=== PATIENT | female | born 1975 | race Caucasian/White ===

== ENCOUNTER 2016-05-07 09:40 | Emergency (ER) | payer MEDICAID ==
[~2016-05-07] VITALS: Ht 160 cm; Wt 85.0 kg
[~2016-05-07 09:40] MED LIST: [UNRECOGNIZED DRUG - REMARK]
[2016-05-07 09:55] VITALS: Ht 160 cm; Wt 85.0 kg
[2016-05-07] MEDS ORDERED: SOD CHLORIDE 0.9% 1,000 ML IV STA (10:05)
[2016-05-07] MEDS ORDERED: morphine 4 MG/ML VIAL IV STA (10:05)
[2016-05-07] MEDS ORDERED: ONDANSETRON 4 MG INJ IV STA (10:05)
[2016-05-07 10:44] LABS: BASOPHILS % 0.1 % (0.0-2.0); EOSINOPHILS % 0.2 % (0.0-7.0); HEMATOCRIT 40.1 % (37.0-47.0); HEMOGLOBIN 13.6 g/dl (12.0-16.0); LYMPHOCYTES % 7.7 % (15.0-51.0); MEAN CORPUSCULAR VOLUME 82.3 fl (82.0-101.0); MEAN PLATELET VOLUME 8.9 fl (7.4-10.4); MONOCYTE # 0.6 10^3/ul (0.3-0.9); MONOCYTES % 4.6 % (0.0-11.0); NEUTROPHIL # 11.5 10^3/ul (1.6-7.5); NEUTROPHILS % 87.4 % (39.0-77.0); PLATELET COUNT 204 10^3/UL (140-440); RED BLOOD COUNT 4.87 10^6/ul (4.20-5.40); RED CELL DISTRIBUTION WIDTH 14.6 % (11.5-14.5); UNCORRECTED WBC 13.1 10^3/ul (4.8-10.8); WHITE BLOOD COUNT 13.1 10^3/ul (4.8-10.8)
[2016-05-07 10:45] LABS: ADD UMIC YES; URINE BILIRUBIN (Dip) NEGATIVE (NEGATIVE); URINE BLOOD (Dip) 3+ (NEGATIVE); URINE COLOR LT. YELLOW (YELLOW); URINE GLUCOSE (Dip) NEGATIVE (NEGATIVE); URINE KETONES (Dip) NEGATIVE (NEGATIVE); URINE LEUKOCYTE ESTERASE (Dip) 1+ (NEGATIVE); URINE NITRITE (Dip) NEGATIVE (NEGATIVE); URINE TOTAL PROTEIN (Dip) NEGATIVE (NEGATIVE); URINE UROBILINOGEN (Dip) 0.2 E.U./dL (0.1-1.0)
[2016-05-07 10:47] LABS: CONDITION 1; LH ANALYZER COMMENTS 1
--- NOTE | 2016-05-07 10:51 | RADRPT ---
PROCEDURE: CT Abdomen and Pelvis without contrast. CLINICAL INDICATION: Abdominal pain. TECHNIQUE: Routine tomographic images of the abdomen and pelvis were obtained from the domes of th e diaphragm to the symphysis pubis. The patient was scanned withoutoral or intravenous contrast. C oronal and sagittal reformatted images were obtained from the axial source images. Images were revie wed on a high-resolution PACS workstation. The total exam CTDI equals 23.40 mGy and the total exam D LP equals 1433.01 mGy-cm. One or more of the following dose reduction techniques were used: Automa clovis exposure control, adjustment of the mA and / or kV according to patient size, or use of iterativ e reconstruction technique. COMPARISON: None. FINDINGS: The visualized portions of the lung bases are clear. Evaluation of the intra-abdominal solid org ans is limited on this noncontrast examination. The liver appears normal in size. There is no intr a or extrahepatic biliary dilatation. The gallbladder is surgically absent. The spleen, pancreas, and adrenal glands are unremarkable. The kidneys are symmetric in size. There is mild left hydronephrosis and proximal hydroureter. The re is a 3 mm calculus within the left mid ureter, approximately 6 cm distal to the UPJ, measuring 31 5 HU. There is an additional nonobstructing 2 mm calculus within the upper pole of the left kidney. No perinephric inflammatory changes are identified. The urinary bladder is grossly unremarkable. The bowel demonstrates normal course and caliber. There is no evidence of bowel obstruction. The appendix is normal in appearance. No intraperitoneal free fluid, free air or abscess is identified. The uterus and adnexa are unremarkable. The aorta is normal in caliber. No retroperitoneal, mesen teric, or inguinal lymphadenopathy is identified. The osseous structures are unremarkable. No significant subcutaneous soft tissue abnormalities are seen. IMPRESSION: 1. 3 mm obstructing calculus within the left mid ureter, approximately 6 cm distal to the UPJ at th e level of the superior endplate of the L4 vertebral body. There is mild left hydronephrosis and pro ximal hydroureter. 2. Additional, 2 mm nonobstructive calculus within the upper pole left kidney. 3. Status post cholecystectomy. RPTAT: HH .Rox Breaux MD, MD Date Time Electronically viewed and signed by .Rox Breaux MD, MD on 05/07/2016 10:51 .G/
[2016-05-07 10:52] LABS: ALBUMIN 4.3 g/dl (3.3-4.9)
[2016-05-07 10:55] LABS: ALBUMIN/GLOBULIN RATIO 1.19; BILIRUBIN,INDIRECT 0.1 mg/dl (0-1.1); BILIRUBIN,TOTAL 0.1 mg/dl (0.2-1.3); CALCIUM 9.3 mg/dl (8.4-10.2); CREATININE 0.59 mg/dl (0.44-1.00); TOTAL PROTEIN 7.9 g/dl (6.1-8.1)
[2016-05-07 11:17] LABS: BACTERIA,URINE FEW; SQUAMOUS EPITHELIAL CELL,UR MODERATE
--- NOTE | 2016-05-07 11:30 | RADRPT ---
PROCEDURE: US Pelvis CLINICAL INDICATION: left lower abdominal pain TECHNIQUE: Multiple sonographic images of the pelvis were obtained utilizing a transabdominal and endovaginal technique. The images were reviewed on a PACS workstation. COMPARISON: CT abdomen/pelvis from the same date LMP: 04/18/2016 FINDINGS: The uterus measures 9.4 x 5.3 cm. The endometrial echo complex measures 16 mm in thickness. Severa l sub-centimeter Nabothian cysts are identified. There is a 5.5 cm uterine fibroid. The right ovary is not visualized. The left ovary measures 2.8 x 2.2 x 6.6 cm. There is normal vascu lar flow in the left ovary. No significant ovarian lesions are seen. No significant pelvic free fluid is identified. IMPRESSION: 5.5 cm uterine fibroid. Prominence of the endometrium is likely related to stage of the menstrual cycle. The left ovary is unremarkable. Nonvisualization of the right ovary. RPTAT: EE Physician Patricia Date Time Electronically viewed and signed by Physician Patricia on 05/07/2016 11:30 /
[2016-05-07] MEDS ORDERED: KETOROLAC 30 MG INJ IV STA (12:06)
[2016-05-07] MEDS ORDERED: ALBUTEROL 0.5% (NEB) 2.5 MG/0.5 ML AMP NEB STA (13:32)
[2016-05-07] MEDS ORDERED: IPRATROPIUM (NEB) 0.5 MG/2.5 ML AMP NEB STA (13:32)
--- NOTE | 2016-05-07 13:57 | RADRPT ---
PROCEDURE: XR Chest. CLINICAL INDICATION: Shortness of breath. Cough. TECHNIQUE: Single frontal chest x-ray. COMPARISON: Abdomen pelvis CT of the same day. FINDINGS: The cardiomediastinal silhouette is unremarkable. There are bilateral low lung volumes with vascular crowding and mild bibasilar atelectasis. No pneum othorax, pleural effusion or consolidation is seen. No acute osseous abnormality is noted. Surgical clips projects over the right upper abdomen likely represent cholecystectomy. IMPRESSION: 1. Low lung volumes with vascular crowding and mild bibasilar atelectasis. 2. Prior cholecystectomy. RPTAT: QQ .Daniel Perez MD, MD Date Time Electronically viewed and signed by .Daniel Perez MD, on 05/07/2016 13:57 .N/
[2016-05-07] MEDS ORDERED: ALBU8.5H3 INH (15:06)
[2016-05-07] MEDS ORDERED: NAPR-260 PO (15:06)
[2016-05-07] MEDS ORDERED: TAMS-14 PO (15:06)
[2016-05-07] MEDS ORDERED: CIPR500T4 PO (15:06)
[2016-05-07] MEDS ORDERED: HYDR-906 PO (15:06)
[2016-05-07 15:16] VITALS: BP 128/69; PULSE 92; RESP 18; TEMP 98.1
--- NOTE | 2016-05-07 15:24 | ERD ---
ER Documentation Chief Complaint Date/Time DATE: 05/07/16 TIME: 15:16 Chief Complaint left upper and lower quadrant pain,vomiting HPI 41-year-old female with a past medical history of asthma, previous appendectomy presents to the ED complaining of a sudden onset of left lower quadrant pain that started last night. States that she is nauseous and has had one episode of nonbilious nonbloody vomiting. Denies any diarrhea. States that she had a normal bowel movement yesterday. States that sometimes the pain is also in her left upper quadrant and left flank region. Describes the pain as achy and rates it a 10 out of 10. Denies taking any medications. Denies any fever, chills, chest pain, shortness of breath. ROS All systems reviewed and are negative except as per history of present illness. Medications Home Meds Active Scripts Albuterol Sulfate* (Proair HFA*) 8.5 Gm Hfa.aer.ad, 2 PUFF INH Q4, #1 INHALER Prov:ALEN CONNELL PA-C 05/07/16 Hydrocodone/Acetaminophen (Aline 5-325 Tablet) 1 Each Tablet, 1 TAB PO Q6H Y for SEVERE PAIN LEVEL 7-10, #7 TAB Prov:ALEN CONNELL PA-C 05/07/16 Naproxen* (Naprosyn*) 500 Mg Tablet, 500 MG PO BID Y for PAIN AND/OR INFLAMMATION, #30 TAB Prov:ALEN CONNELL PA-C 05/07/16 Tamsulosin Hcl* (Flomax*) 0.4 Mg Cap.er.24h, 0.4 MG PO QPM, #30 CAP Prov:ALEN CONNELL PA-C 05/07/16 Ciprofloxacin Hcl* (Ciprofloxacin Hcl*) 500 Mg Tablet, 500 MG PO BID for 10 Days , TAB Prov:ALEN CONNELL PA-C 05/07/16 Reported Medications [No Meds Being Taken] No Conflict Check 12/24/10 Allergies Allergies: Coded Allergies: No Known Allergy (Verified , 05/07/16) PMhx/Soc History of Surgery: Yes (C SECTION 2004) Anesthesia Reaction: No Hx Neurological Disorder: No Hx Respiratory Disorders: No Hx Cardiac Disorders: No Hx Psychiatric Problems: No Hx Miscellaneous Medical Probl: No Hx Alcohol Use: No Hx Substance Use: No Hx Tobacco Use: No Smoking Status: Never smoker Physical Exam Vitals Vital Signs Date Time Temp Pulse Resp B/P Pulse Ox O2 Delivery O2 Flow Rate FiO2 05/07/16 15:16 98.1 92 18 128/69 98 05/07/16 14:10 83 18 98 21 05/07/16 13:56 Nasal Cannula 2 05/07/16 09:55 98.3 83 18 130/60 98 Physical Exam Const: [id number], well-nourished. In no acute distress. Head: Atraumatic, normocephalic Eyes: Normal Conjunctiva without injection. No purulent discharge. ENT: Normal external ear, nose. Moist oropharynx without tonsillar exudates. Non -erythematous pharynx. Uvula midline. No drooling. No trismus. Neck: No cervical midline tenderness. Full range of motion. No meningismus. No cervical lymphadenopathy. No JVD. Resp: Clear to auscultation bilaterally. No wheezing, rhonchi, rales, or crackles. No accessory muscle use. No retractions. Cardio: Regular rate and rhythm. No murmurs, rubs or gallops. Abd: Soft, left upper and left lower abdominal pain, non distended. Normal bowel sounds. No palpable masses. No rebound tenderness. No guarding. Negative McBurney's point. Negative psoas sign. Negative obturator sign. Skin: No petechiae or rashes Back: No midline tenderness. Left CVA tenderness. Ext: No cyanosis, or edema. Neur: Awake and alert. Normal gait. Normal coordination. Psych: Normal Mood and Affect Result Diagram: 05/07/16 1020 05/07/16 1020 Results 24 hrs Laboratory Tests Test 05/07/16 10:20 Alanine Aminotransferase (ALT/SGPT) 29IU/L Albumin 4.3g/dl Albumin/Globulin Ratio 1.19 Alkaline Phosphatase 98IU/L Anion Gap 19 Aspartate Amino Transf (AST/SGOT) 20IU/L Basophils # 0.010^3/ul Basophils % 0.1% Blood Morphology Comment Blood Urea Nitrogen 11mg/dl Calcium Level 9.3mg/dl Carbon Dioxide Level 24mmol/L Chloride Level 104mmol/L Creatinine 0.59mg/dl Direct Bilirubin 0.00mg/dl Eosinophils # 0.010^3/ul Eosinophils % 0.2% Globulin 3.60g/dl Glucose Level 145mg/dl Hematocrit 40.1% Hemoglobin 13.6g/dl Indirect Bilirubin 0.1mg/dl Lipase 114U/L Lymphocytes # 1.010^3/ul Lymphocytes % 7.7% Mean Corpuscular Hemoglobin 28.0pg Mean Corpuscular Hemoglobin Concent 34.0g/dl Mean Corpuscular Volume 82.3fl Mean Platelet Volume 8.9fl Monocytes # 0.610^3/ul Monocytes % 4.6% Neutrophils # 11.510^3/ul Neutrophils % 87.4% Nucleated Red Blood Cells # 0.010^3/ul Nucleated Red Blood Cells % 0.0/100WBC Platelet Count 91333^3/UL Potassium Level 4.0mmol/L Red Blood Count 4.8710^6/ul Red Cell Distribution Width 14.6% Sodium Level 143mmol/L Total Bilirubin 0.1mg/dl Total Protein 7.9g/dl Urine Bacteria FEW Urine Bilirubin NEGATIVE Urine Clarity CLEAR Urine Color LT. YELLOW Urine Glucose NEGATIVE% Urine Hemoglobin 3+ Urine Ketones NEGATIVE Urine Leukocyte Esterase 1+ Urine Microscopic RBC 5-10/HPF Urine Microscopic WBC 2-5/HPF Urine Nitrite NEGATIVE Urine Specific [place] 1.010 Urine Squamous Epithelial Cells MODERATE Urine Total Protein NEGATIVE Urine Urobilinogen 0.2 E.U./dL Urine pH 6.0 White Blood Count 13.110^3/ul Current Medications Medications (Trade) Dose Ordered Sig/Maynor Route PRN Reason Start Time Stop Time Status Last Admin Dose Admin Sodium Chloride (NS) 1,000 ml @ 1,000 mls/hr Q1H STAT IV 05/07/16 10:05 05/07/16 11:04 DC 05/07/16 10:30 Morphine Sulfate (morphine) 4 mg ONCE STAT IV 05/07/16 10:05 05/07/16 10:09 DC 05/07/16 10:30 Ondansetron HCl (Zofran Inj) 4 mg ONCE STAT IV 05/07/16 10:05 05/07/16 10:09 DC 05/07/16 10:30 Ketorolac Tromethamine (Toradol) 30 mg ONCE STAT IV 05/07/16 12:06 05/07/16 12:07 DC 05/07/16 12:09 Albuterol (Proventil 0.5% (Neb)) 10 mg ONCE STAT NEB 05/07/16 13:32 05/07/16 13:35 DC 05/07/16 14:10 Ipratropium [place] (Atrovent 0.02% (Neb)) 1 mg ONCE STAT NEB 05/07/16 13:32 05/07/16 13:36 DC 05/07/16 14:10 Procedures/MDM 41-year-old female with no significant past medical history presents the ED complaining of left lower, left upper quadrant abdominal pain. Patient is afebrile and nontoxic-appearing. Patient has normal vital signs. Patient was further worked up with CBC, CMP, lipase, UA, urine , Patient's pain and symptoms have improved after treatment with 4 mg IV Zofran, 4 mg IV morphine, 30 mg IV ketorolac. CBC: Slight leukocytosis of 13.1 likely secondary to a urinary tract infection or a stress reaction from pain. No e/o anemia. CMP: No e/o severe acidosis, alkalosis, renal failure, diabetic ketoacidosis, liver disease Lipase within normal limits. Urine: 1+ leukocyte esterase, WBC 2-5, 3+ hematuria Urine : Negative A differential diagnosis considered includes but is not limited to gastritis, GERD, peptic ulcer disease, cholecystitis, choledocholithiasis, cholangitis, pancreatitis, appendicitis, bowel obstruction, ileus, volvulus, nephrolithiasis , pyelonephritis, hepatitis, perforated viscus, diverticulitis, abdominal hernia , acute abdomen, mesenteric ischemia or other emergent conditions. Discharge medications: Follow up with primary care physician in 1-2 days for referral to pick up and delivery driver. Instructed patient to return to the ED sooner for any worsening symptoms. Patient's questions were answered. Patient understood and agreed with discharge plan. Patient discharged stable. PROCEDURE: XR Chest. CLINICAL INDICATION: Shortness of breath. Cough. TECHNIQUE: Single frontal chest x-ray. COMPARISON: Abdomen pelvis CT of the same day. FINDINGS: The cardiomediastinal silhouette is unremarkable. There are bilateral low lung volumes with vascular crowding and mild bibasilar atelectasis. No pneumothorax, pleural effusion or consolidation is seen. No acute osseous abnormality is noted. Surgical clips projects over the right upper abdomen likely represent cholecystectomy. IMPRESSION: 1. Low lung volumes with vascular crowding and mild bibasilar atelectasis. 2. Prior cholecystectomy. PROCEDURE: CT Abdomen and Pelvis without contrast. CLINICAL INDICATION: Abdominal pain. TECHNIQUE: Routine tomographic images of the abdomen and pelvis were obtained from the domes of the diaphragm to the symphysis pubis. The patient was scanned withoutoral or intravenous contrast. Coronal and sagittal reformatted images were obtained from the axial source images. Images were reviewed on a high-resolution PACS workstation. The total exam CTDI equals 23.40 mGy and the total exam DLP equals 1433.01 mGy-cm. One or more of the following dose reduction techniques were used: Automated exposure control, adjustment of the mA and / or kV according to patient size, or use of iterative reconstruction technique. COMPARISON: None. FINDINGS: The visualized portions of the lung bases are clear. Evaluation of the intra -abdominal solid organs is limited on this noncontrast examination. The liver appears normal in size. There is no intra or extrahepatic biliary dilatation. The gallbladder is surgically absent. The spleen, pancreas, and adrenal glands are unremarkable. The kidneys are symmetric in size. There is mild left hydronephrosis and proximal hydroureter. There is a 3 mm calculus within the left mid ureter, approximately 6 cm distal to the UPJ, measuring 315 HU. There is an additional nonobstructing 2 mm calculus within the upper pole of the left kidney. No perinephric inflammatory changes are identified. The urinary bladder is grossly unremarkable. The bowel demonstrates normal course and caliber. There is no evidence of bowel obstruction. The appendix is normal in appearance. No intraperitoneal free fluid, free air or abscess is identified. The uterus and adnexa are unremarkable. The aorta is normal in caliber. No retroperitoneal, mesenteric, or inguinal lymphadenopathy is identified. The osseous structures are unremarkable. No significant subcutaneous soft tissue abnormalities are seen. IMPRESSION: 1. 3 mm obstructing calculus within the left mid ureter, approximately 6 cm distal to the UPJ at the level of the superior endplate of the L4 vertebral body. There is mild left hydronephrosis and proximal hydroureter. 2. Additional, 2 mm nonobstructive calculus within the upper pole left kidney. 3. Status post cholecystectomy. PROCEDURE: US Pelvis CLINICAL INDICATION: left lower abdominal pain TECHNIQUE: Multiple sonographic images of the pelvis were obtained utilizing a transabdominal and endovaginal technique. The images were reviewed on a PACS workstation. COMPARISON: CT abdomen/pelvis from the same date LMP: 04/18/2016 FINDINGS: The uterus measures 9.4 x 5.3 cm. The endometrial echo complex measures 16 mm in thickness. Several sub-centimeter Nabothian cysts are identified. There is a 5.5 cm uterine fibroid. The right ovary is not visualized. The left ovary measures 2.8 x 2.2 x 6.6 cm. There is normal vascular flow in the left ovary. No significant ovarian lesions are seen. No significant pelvic free fluid is identified. IMPRESSION: 5.5 cm uterine fibroid. Prominence of the endometrium is likely related to stage of the menstrual cycle. The left ovary is unremarkable. Nonvisualization of the right ovary. This case has been discussed with my supervising physician, Dr. Benson and who stated that we should consult the urologist. Dr. Hooper was consulted. Stated that there is low suspicion for a septic renal stone. Patient likely has pyelonephritis with nephrolithiasis without any signs of sepsis. Denies any acute abdomen, appendicitis, cholecystitis, bowel obstruction, or other emergent conditions. Discharge medications: Naproxen, Aline, Flomax, Ciprofloxacin, Follow up with primary care physician in 1-2 days. Instructed patient to return to the ED sooner for any worsening symptoms. Patient's questions were answered. Patient understood and agreed with discharge plan. Patient discharged stable. Departure Diagnosis: Primary Impression: Nephrolithiasis Additional Impressions: Urinary tract infection Urinary tract infection type: site unspecified Hematuria presence: without hematuria Qualified Code: N39.0 - Urinary tract infection without hematuria, site unspecified Asthma Asthma severity: unspecified severity Asthma complication type: uncomplicated Qualified Code: J45.909 - Uncomplicated asthma, unspecified asthma severity Condition: Stable Patient Instructions: Urinary Tract Infections in Women, Asthma, Acute (Adult) , Kidney Stone W/ Colic Referrals: COMM[facility]ITY CLIN[facility] YOU HAVE RECEIVED A MEDICAL SCREENING EXAM AND THE RESULTS INDICATE THAT YOU DO NOT HAVE A CONDITION THAT REQUIRES URGENT TREATMENT IN THE EMERGENCY DEPARTMENT. FURTHER EVALUATION AND TREATMENT OF YOUR CONDITION CAN WAIT UNTIL YOU ARE SEEN IN YOUR DOCTORS OFFICE WITHIN THE NEXT 1-2 DAYS. IT IS YOUR RESPONSIBILITY TO MAKE AN APPOINTMENT FOR FOLOW-UP CARE. IF YOU HAVE A PRIMARY DOCTOR --you should call your primary doctor and schedule an appointment IF YOU DO NOT HAVE A PRIMARY DOCTOR YOU CAN CALL OUR PHYSICIAN REFERRAL HOTLINE AT IF YOU CAN NOT AFFORD TO SEE A PHYSICIAN YOU CAN CHOSE FROM THE FOLLOWING [facility] [address] [facility] [address] [facility] [address] [facility] [address] [facility] [address] [facility]. [facility] [address] [facility]. [facility] YOU HAVE RECEIVED A MEDICAL SCREENING EXAM AND THE RESULTS INDICATE THAT YOU DO NOT HAVE A CONDITION THAT REQUIRES URGENT TREATMENT IN THE EMERGENCY DEPARTMENT. FURTHER EVALUATION AND TREATMENT OF YOUR CONDITION CAN WAIT UNTIL YOU ARE SEEN IN YOUR DOCTORS OFFICE WITHIN THE NEXT 1-2 DAYS. IT IS YOUR RESPONSIBILITY TO MAKE AN APPOINTMENT FOR FOLOW-UP CARE. IF YOU HAVE A PRIMARY DOCTOR --you should call your primary doctor and schedule and appointment IF YOU DO NOT HAVE A PRIMARY DOCTOR YOU CAN CALL OUR PHYSICIAN REFERRAL HOTLINE AT . IF YOU CAN NOT AFFORD TO SEE A PHYSICIAN YOU CAN CHOSE FROM THE FOLLOWING [facility]: [facility] [address] [place] [address] [facility] [address] [place], [place] [id number] [place] [address] [address] [place] [address] [facility] URGENT CARE/SPECIALTIES Additional Instructions: La medicina que se le recet puede causarle sueo.NO DEBE MANEJAR NI OPERAR MAQUINARIAS PELIGROSAS mientras esta tomando esta medicina! Visite a lopez mdico maana para un EXAMEN.Regrese a estas instalaciones si no se mejora lubna esperbamos o lubna le dijimos. ALEN CONNELL PA-C May 07, 2016 15:24
== END 2016-05-07 15:18 | disposition home or self-care (01) ==
LOC: FTE 09:40
DX: N20.0 Calculus of kidney (principal); N39.0 Urinary tract infection, site not specified; J45.909 Unspecified asthma, uncomplicated; R11.10 Vomiting, unspecified; R06.02 Shortness of breath
CPT/HCPCS: 36415; 71010; 74176; 76830; 76856; 80053; 81001; 83690; 85025; 87086; 94644; 96374; 96375; J1885; J2270; J2405; J7030; Z7502; Z7610; 81003

== ENCOUNTER 2017-05-31 18:38 | Emergency (ER) | END 2017-05-31 21:14 | disposition home or self-care (01) ==

== ENCOUNTER 2018-04-15 08:41 | Emergency (ER) | payer MEDICAID ==
[~2018-04-15] VITALS: Wt 90.0 kg
[~2018-04-15 08:41] MED LIST changes: +ALBU8.5H8 INH; +CIPR500T4 PO; +HYDR-3980 PO; +HYDR-4011 PO; +IBUP800T48 PO; +NAPR-985 PO; +TAMS-14 PO
[2018-04-15] MEDS ORDERED: KETOROLAC 15 MG INJ IV STA (09:17)
[2018-04-15] MEDS ORDERED: SOD CHLORIDE 0.9% 1,000 ML IV ONE (09:30)
[2018-04-15] MEDS ORDERED: DIPHENHYDRAMINE 50 MG INJ IV ONE (09:30)
[2018-04-15] MEDS ORDERED: METOCLOPRAMIDE 10 MG INJ IV ONE (09:30)
[2018-04-15] MEDS ORDERED: ACET325T33 PO (10:30)
[2018-04-15] MEDS ORDERED: METO10TA92 PO (10:30)
[2018-04-15 11:21] VITALS: BP 118/66; PULSE 73; RESP 20
--- NOTE | 2018-04-15 15:14 | ERD ---
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 Patient rates moderate in severity. Patient has not tried any medications. Denies vision changes or neuro deficits. ROS All systems reviewed and are negative except as per history of present illness. Medications Home Meds Active Scripts Acetaminophen* (Tylenol*) 325 Mg Tablet, 2 TAB PO Q6 PRN for PAIN AND OR ELEVATED TEMP, #30 TAB Prov:PAOLA YA PA-C 04/15/18 Metoclopramide* (Reglan*) 10 Mg Tablet, 10 MG PO Q6 PRN for NAUSEA AND/OR VOMITING, #20 TAB Prov:PAOLA YA PA-C 04/15/18 Ibuprofen* (Motrin*) 800 Mg Tab, 800 MG PO Q6H PRN for PAIN AND OR ELEVATED TEMP, #30 TAB Prov:LEBEN NATHSTOLOS A. DO 05/31/17 Hydrocodone/Acetaminophen ([place] 10-325 Tablet) 1 Each Tablet, 1 TAB PO Q6H PRN for PAIN, #12 TAB Prov:TYLERKKOSAPOSTOLOS A. DO 18 Albuterol Sulfate* (Proair HFA*) 8.5 Gm Hfa.aer.ad, 2 PUFF INH Q4, #1 INHALER Prov:ALEN CONNELL PA-C 05/07/16 Hydrocodone/Acetaminophen ([place] 5-325 Tablet) 1 Each Tablet, 1 TAB PO Q6H PRN for SEVERE PAIN LEVEL 7-10, #7 TAB Prov:ALEN CONNELL PA-C 05/07/16 Naproxen* (Naprosyn*) 500 Mg Tablet, 500 MG PO BID PRN for PAIN AND/OR INFLAMMATION, #30 TAB Prov:ALEN CONNELL PA-C 05/07/16 Tamsulosin Hcl* (Flomax*) 0.4 Mg Cap.er.24h, 0.4 MG PO QPM, #30 CAP Prov:ALEN CONNELL PA-C 05/07/16 Ciprofloxacin Hcl* (Ciprofloxacin Hcl*) 500 Mg Tablet, 500 MG PO BID for 10 Days, TAB Prov:ALEN CONNELL PA-C 05/07/16 Reported Medications [No Meds Being Taken] No Conflict Check 12/24/10 Allergies Allergies: Coded Allergies: No Known Allergy (Verified , 05/07/16) PMhx/Soc History of Surgery: No Anesthesia Reaction: No Hx Neurological Disorder: No Hx Respiratory Disorders: No Hx Cardiac Disorders: No Hx Psychiatric Problems: No Hx Miscellaneous Medical Probl: No Hx Alcohol Use: No Hx Substance Use: No Hx Tobacco Use: No Smoking Status: Never smoker Physical Exam Vitals Vital Signs Date Temp Pulse Resp B/P (MAP) Pulse Ox O2 O2 Flow FiO2 Time Delivery Rate 04/15/18 98.3 73 20 118/66 98 Room Air 11:21 (83) 04/15/18 98.7 78 18 145/69 99 08:43 (94) Physical Exam GENERAL: well-developed/well-nourished, in no apparent distress, non-toxic appearing HENT: NC/AT, bilateral tympanic membrane is normal with good cone of light, nares patent, oropharynx clear without exudates EYES: Conjunctiva normal, PERRLA, EOMI, no nystagmus noted NECK: Supple, no lymphadenopathy PULM: CTA bilaterally, no rales, rhonchi, or wheezing heard CV: Normal S1S2, RRR, good capillary refill GI: Soft, non-distended, normal bowel sounds, non-tender BACK: No midline tenderness, no masses, No CVAT EXT: No clubbing, cyanosis, or edema NEURO: Alert and orientated to person, place, and time. CN II-IIX intact. Gait and coordination were normal. 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 and within normal limits SKIN: Intact, normal turgor PSYCH: Normal mood and mentation, patient denied SI Result Diagram: 04/15/1892804/15/18928 Results 24 hrs Laboratory Tests Test 04/15/18 09:29 White Blood Count 5.8 10^3/ul Red Blood Count 4.88 10^6/ul Hemoglobin 13.6 g/dl Hematocrit 41.3 % Mean Corpuscular Volume 84.6 fl Mean Corpuscular Hemoglobin 27.9 pg Mean Corpuscular Hemoglobin Concent 32.9 g/dl Red Cell Distribution Width 13.6 % Platelet Count 182 10^3/UL Mean Platelet Volume 10.4 fl Immature Granulocytes % 0.200 % Neutrophils % 60.4 % Lymphocytes % 31.1 % Monocytes % 6.6 % Eosinophils % 1.4 % Basophils % 0.3 % Nucleated Red Blood Cells % 0.0 /100WBC Immature Granulocytes # 0.010 10^3/ul Neutrophils # 3.5 10^3/ul Lymphocytes # 1.8 10^3/ul Monocytes # 0.4 10^3/ul Eosinophils # 0.1 10^3/ul Basophils # 0.0 10^3/ul Nucleated Red Blood Cells # 0.0 10^3/ul Urine Color YELLOW Urine Clarity CLEAR Urine pH 5.0 Urine Specific [place] 1.011 Urine Ketones NEGATIVE mg/dL Urine Nitrite NEGATIVE mg/dL Urine Bilirubin NEGATIVE mg/dL Urine Urobilinogen NEGATIVE mg/dL Urine Leukocyte Esterase NEGATIVE Nam/ul Urine Microscopic RBC 3 /HPF Urine Microscopic WBC 3 /HPF Urine Squamous Epithelial Cells FEW /HPF Urine Bacteria FEW /HPF Urine Hemoglobin 1+ mg/dL Urine Glucose NEGATIVE mg/dL Urine Total Protein NEGATIVE mg/dl Sodium Level 142 mmol/L Potassium Level 4.1 mmol/L Chloride Level 107 mmol/L Carbon Dioxide Level 23 mmol/L Anion Gap 12 Blood Urea Nitrogen 8 mg/dl Creatinine 0.43 mg/dl Est Glomerular Filtrat Rate mL/min > 60 mL/min Glucose Level 163 mg/dl Calcium Level 9.7 mg/dl Total Bilirubin 0.1 mg/dl Direct Bilirubin 0.00 mg/dl Indirect Bilirubin 0.1 mg/dl Aspartate Amino Transf (AST/SGOT) 42 IU/L Alanine Aminotransferase (ALT/SGPT) 51 IU/L Alkaline Phosphatase 108 IU/L Total Protein 7.6 g/dl Albumin 4.6 g/dl Globulin 3.00 g/dl Albumin/Globulin Ratio 1.53 Lipase 178 U/L POC Beta HCG, Qualitative NEGATIVE Current Medications Medications Dose Sig/Maynor Start Time Status Last (Trade) Ordered Route PRN Stop Time Admin Dose Reason Admin Sodium 1,000 ml @ Q1H ONCE 04/15/18 DC 04/15/18 Chloride 1,000 mls/hr IV 09:30 09:37 04/15/18 10:29 10 mg ONCE ONCE 04/15/18 DC 04/15/18 Metoclopramid IV 09:30 09:37 e HCl 04/15/18 09:31 (Reglan) 25 mg ONCE ONCE 04/15/18 DC 04/15/18 Diphenhydrami IV 09:30 09:38 ne HCl 04/15/18 09:31 (Benadryl) Ketorolac 15 mg ONCE STAT 04/15/18 DC 04/15/18 Tromethamine IV 09:17 09:37 (Toradol) 04/15/18 09:19 Procedures/MDM 43 year old female presents with headache, likely migraine vs tension. My differential diagnoses include tension, and cluster headache, overuse medication headache, subarachnoid hemorrhage, meningitis, stroke. Pain relief Toradol, Benadryl and Reglan was given in the ED with some improvement. Neurology exam was normal and I don't recommend a CT scan at this time. hemodynamically stable and neurovascularly intact. Prescriptions Tylenol and Reglan were given. Discussed to follow up with a primary care physician in the next couple days. Return to the ER if condition worsens or not improving as expected. Patient agreed and understood this plan. Departure Diagnosis: Primary Impression: Headache Condition: Stable Patient Instructions: What Are Migraine and Tension Headaches?, Self-Care for Headaches, Headache, Migraine (Classical) Referrals: NO PRIMARY,CARE PHYSICIAN (PCP) Additional Instructions: Visite a [address] para un EXAMEN.Regrese a estas instalaciones si no se mejora lubna esperbamos o lubna le dijimos. [place] toda la medicina nicki y lubna se le indic. PAOLA YA PA-C Apr 15, 2018 15:14
== END 2018-04-15 11:23 | disposition home or self-care (01) ==
LOC: FTE 08:41
DX: R51 Headache (principal)
CPT/HCPCS: 80053; 81001; 81025; 83690; 85025; 96374; 96375; J1200; J1885; J2765; J7030; Z7502